=== PATIENT | male | born 2005 | race African-American/Black ===

== ENCOUNTER 2024-10-15 10:35 | Inpatient (IN) | payer OTHER ==
[~2024-10-15] VITALS: Ht 190.5 cm; Wt 81.8 kg
[2024-10-15] MEDS: NICOTINE 14 MG/24 HR TRANSDERMAL TD SCH (09:00)
[2024-10-15 11:33] LABS: HEMATOCRIT 39.5 % (42.0-52.0); HEMOGLOBIN 12.8 g/dl (13.5-17.5); MEAN CORPUSCULAR HEMOGLOBIN 26.9 pg (27.0-33.0); MEAN CORPUSCULAR HGB CONC 32.4 g/dl (32.0-36.5); PLATELET COUNT, AUTOMATED 290 10^3/uL (150-450); RED BLOOD COUNT 4.76 10^6/uL (4.30-6.10); WHITE BLOOD COUNT 3.6 10^3/uL (4.0-10.0)
[2024-10-15 11:56] LABS: ETHYL ALCOHOL (ETHANOL) 0.004 % (0.000-0.010)
[2024-10-15 11:58] LABS: ALBUMIN 3.8 G/DL (3.2-5.2); ALKALINE PHOSPHATASE 123 U/L (40-129); ALT/SGPT 31 U/L (7.0-40); AST/SGOT 31 U/L (<34); BILIRUBIN,DIRECT 0.1 MG/DL (<0.4); BILIRUBIN,TOTAL 0.3 MG/DL (0.3-1.2); BLOOD UREA NITROGEN 12 MG/DL (9-23); CALCIUM LEVEL 9.6 MG/DL (8.5-10.1); CARBON DIOXIDE LEVEL 26 MMOL/L (20-31); CHLORIDE LEVEL 106 MMOL/L (98-107); CREATININE FOR GFR 0.94 MG/DL (0.70-1.30); GLOMERULAR FILTRATION RATE > 90.0 (>60); GLUCOSE, FASTING 88 MG/DL (60-100); POTASSIUM SERUM 4.6 MMOL/L (3.5-5.1); SALICYLATE LEVEL < 3.0 MG/DL (<30); SODIUM LEVEL 140 MMOL/L (136-145); TOTAL PROTEIN 6.9 G/DL (5.7-8.2)
[2024-10-15 12:00] LABS: THYROID STIMULATING HORMONE 1.758 uIU/ML (0.48-4.17)
[2024-10-15 12:46] LABS: AMPHETAMINES LEVEL URINE NEGATIVE (NEGATIVE); BARBITURATES URINE NEGATIVE (NEGATIVE); BENZODIAZEPINES URINE NEGATIVE (NEGATIVE); COCAINE METABOLITE URINE NEGATIVE (NEGATIVE)
[2024-10-15 12:47] LABS: CANNABINOIDS URINE NEGATIVE (NEGATIVE); METHADONE URINE NEGATIVE (NEGATIVE); OPIATES URINE NEGATIVE (NEGATIVE); PHENCYCLIDINE URINE NEGATIVE (NEGATIVE)
[2024-10-15] MEDS ORDERED: HOME MED LIST COMPLETE! XX SCH (13:50)
[2024-10-15] MEDS ORDERED: LORazepam 1 MG TAB PO PRN (15:20)
[2024-10-15] MEDS ORDERED: MOM 30ML SUSPENSION UDC PO PRN (15:20)
[2024-10-15] MEDS ORDERED: diphenhydrAMINE 25MG CAP PO PRN (15:20)
[2024-10-15] MEDS ORDERED: MAALOX 30 ML SUSP *UDC PO PRN (15:20)
[2024-10-15] MEDS ORDERED: OLANZapine 5 MG TAB PO PRN (15:20)
[2024-10-15] MEDS ORDERED: ACETAMINOPHEN 325 MG TAB PO PRN (15:20)
[2024-10-15 16:00] VITALS: BP 133/68; TEMP 97; O2SAT 99
[2024-10-16 06:41] VITALS: BP 124/59; TEMP 97.7; O2SAT 100
[2024-10-16] MEDS: buPROPion **XL** TABLET 150MG (WELLBUTRIN XL) PO SCH (14:21)
[2024-10-16 15:46] VITALS: BP 139/66; TEMP 96.7; O2SAT 100
[2024-10-17 06:32] VITALS: BP 148/68; TEMP 97.4; O2SAT 96
[2024-10-17] MEDS ORDERED: ANALGESIC BALM CRM 3OZ TOP PRN (13:55)
[2024-10-17 15:18] VITALS: BP 116/67; TEMP 97.4; O2SAT 95
[2024-10-18 06:42] VITALS: BP 125/77; TEMP 97; O2SAT 100
[2024-10-18 15:04] VITALS: BP 137/63; TEMP 97.3; O2SAT 100
[2024-10-19 06:40] VITALS: BP 128/60; TEMP 97; O2SAT 98
[2024-10-19 14:50] VITALS: BP 128/57; TEMP 97.4; O2SAT 98
[2024-10-19] MEDS: traZODone 50 MG TAB PO PRN (20:20)
[2024-10-20 07:13] VITALS: BP 114/88; TEMP 97.5; O2SAT 100
[2024-10-20 16:25] VITALS: BP 118/56; TEMP 97.7; O2SAT 95
[2024-10-21] MEDS ORDERED: TRAZ-252 PO (00:17)
[2024-10-21] MEDS ORDERED: BUPR150T12 PO (00:17)
[2024-10-21] MEDS ORDERED: HYDR-4570 PO (00:17)
[2024-10-21 06:50] VITALS: BP 107/50; TEMP 98; O2SAT 98
== END 2024-10-21 12:04 | disposition home or self-care (01) | DRG 885 ==
LOC: M ED 10:35 → M ED INP 15:16 → M PSY 15:54
PROVIDERS: ADMIT Internal Medicine; ATTEND Internal Medicine
DX: F33.1 Major depressive disorder, recurrent, moderate (principal); R45.851 Suicidal ideations; F41.9 Anxiety disorder, unspecified; Z56.3 Stressful work schedule; Z91.52 Personal history of nonsuicidal self-harm; Z91.51 Personal history of suicidal behavior